=== PATIENT | male | born 1980 | race Caucasian/White ===

== ENCOUNTER 2017-11-02 15:48 | Emergency (ER) | payer BC ==
[2017-11-02] MEDS ORDERED: Metoclopramide HCl 10 MG TAB ONE (17:04)
[2017-11-02] MEDS ORDERED: diphenhydrAMINE 25 MG CAP ONE (17:04)
== END 2017-11-02 18:16 | disposition home or self-care (01) ==
LOC: ERS 15:48
DX: R51 Headache (principal)
CPT/HCPCS: 99283

== ENCOUNTER 2018-03-20 18:39 | Emergency (ER) | payer BC ==
[2018-03-20 19:09] LABS: #Basophils 0.1 thou/uL (0.0-0.2); #Eosinphils 0.1 thou/uL (0.0-0.7); #Lymphocytes 2.2 thou/uL (1.20-3.40); #Monocytes 0.5 thou/uL (0.11-0.59); #Neutrophils 3.3 thou/uL (1.40-6.50); %Basophils 1.1 % (0.0-1.0); %Eosinophils 1.1 % (0.0-10.0); %Lymphocytes 35.4 % (21.0-51.0); %Monocytes 8.2 % (0.0-10.0); %Neutrophils 54.2 % (42.0-75.0); Hemoglobin 15.5 g/dL (14.0-18.0); Mean Corpuscular HGB CONC 34.8 g/dL (32.0-36.0); Mean Corpuscular Volume 88.9 fL (78.0-98.0); Mean Platelet Volume 7.1 fL (7.4-10.4); Platelet Count 318 thou/uL (130-400); RBC Distribution Width 11.1 % (11.5-14.5); Red Blood Cell (RBC) Count 5.02 mill/uL (4.70-6.10); White Blood Cell (WBC) Count 6.2 thou/uL (4.8-10.8)
--- NOTE | 2018-03-20 19:22 | RAD ---
CHEST TWO VIEWS: 03/20/18 HISTORY: Chest pain, mid sternal region with deep breaths. FINDINGS/IMPRESSION: Heart size is normal. The lungs are clear. No pneumonia, edema, pleural effusion or other acute proce ss. POS: [facility]
[2018-03-20 19:30] LABS: ALT (SGPT) 39 U/L (8-55); AST (SGOT) 22 U/L (5-34); Albumin 4.5 g/dL (3.5-5.0); Alkaline Phosphatase 61 U/L (40-150); Anion Gap 14 mmol/L (10-20); BUN (Urea Nitrogen) 13 mg/dL (8.9-20.6); Bilirubin, Total 0.4 mg/dL (0.2-1.2); CK (CPK) 85 U/L (30-200); Calc. Creatinine Clearance 0 mL/min (70-130); Calcium 9.7 mg/dL (7.8-10.44); Carbon Dioxide 26 mmol/L (22-29); Chloride 104 mmol/L (98-107); Estimated GFR-MDRD 82; Globulin 3.7 g/dL (2.4-3.5); Glucose 119 mg/dL (70-105); Potassium 4.1 mmol/L (3.5-5.1); Protein, Total 8.2 g/dL (6.0-8.3); Sodium 140 mmol/L (136-145)
[2018-03-20 21:46] LABS: Troponin I Less than 0.010 ng/mL (< 0.028)
== END 2018-03-20 22:08 | disposition home or self-care (01) ==
LOC: ERS 18:39
DX: R07.89 Other chest pain (principal)
CPT/HCPCS: 36415; 71046; 80053; 82550; 83690; 84484; 85025; 93005

== ENCOUNTER 2018-08-24 15:28 | Outpatient (CLI) | payer BC ==
--- NOTE | 2018-08-24 16:13 | CT ---
CT cervical spine noncontrast HISTORY: Neck pain. M54.2. FINDINGS: Vertebral body heights are maintained. Physiologic subluxation at the C2-3 and C3-4 levels. No acute fracture or dislocation. No traumatic disc herniation is apparent. Minimal osteophytosis. Cervicothoracic junction is intact. No fluid collections or other abnormalities about the atlantoodon toid area. IMPRESSION: No acute osseous abnormalities are demonstrated.
== END 2018-08-24 15:29 | disposition home or self-care (01) ==
LOC: BICCT 15:28
PROVIDERS: ATTEND Physician Assistant
DX: M54.2 Cervicalgia (principal)
CPT/HCPCS: 72125

== ENCOUNTER 2022-04-24 09:57 | Emergency (ER) | payer BC ==
[2022-04-24 10:25] LABS: Bilirubin Negative (Negative); Blood, Urine Negative (Negative); Clarity Clear (Clear); Glucose, Urine (Dipstick) Normal (Negative); Ketone, Urine Negative (Negative); Leukocyte Negative Leu/uL (Negative); Nitrite Negative (Negative); Protein, Urine (Dipstick) Negative (Neg-Trace); Specific Gravity, Urine 1.002 (1.002-1.036); Urobilinogen Normal mg/dL (Less than 2); pH, Urine 6.5 (5.0-9.0)
[2022-04-24 10:41] LABS: #Lymphocytes 2.3 thou/uL (1.20-3.40); #Monocytes 0.5 thou/uL (0.11-0.59); %Basophils 0.6 % (0.0-1.0); %Eosinophils 0.8 % (0.0-10.0); %Lymphocytes 39.1 % (21.0-51.0); %Monocytes 7.9 % (0.0-10.0); %Neutrophils 51.6 % (42.0-75.0); Hemoglobin 16.1 g/dL (14.0-18.0); Mean Corpuscular HGB CONC 35.6 g/dL (32.0-36.0); Mean Corpuscular Volume 90.1 fl (78.0-98.0); Mean Platelet Volume 7.1 fL (7.4-10.4); Platelet Count 298 10x3/uL (130-400); RBC Distribution Width 11.2 % (11.5-14.5); Red Blood Cell (RBC) Count 5.04 mill/uL (4.70-6.10); White Blood Cell (WBC) Count 5.8 10x3/uL (4.8-10.8)
[2022-04-24 10:49] LABS: ALT (SGPT) 46 U/L (8-55); AST (SGOT) 28 U/L (5-34); Albumin 4.6 g/dL (3.5-5.0); Alkaline Phosphatase 52 U/L (40-110); Anion Gap 13 mmol/L (10-20); BUN (Urea Nitrogen) 16 mg/dL (8.9-20.6); Bilirubin, Total 0.7 mg/dL (0.2-1.2); Calc. Creatinine Clearance 0 mL/min (70-130); Calcium 9.9 mg/dL (7.8-10.44); Carbon Dioxide 27 mmol/L (22-29); Chloride 102 mmol/L (98-107); Estimated GFR 85; Globulin 3.4 g/dL (2.4-3.5); Glucose 111 mg/dL (70-105); Lipase 17 U/L (8-78); Sodium 138 mmol/L (136-145)
[2022-04-24] MEDS ORDERED: Ketorolac Tromethamine 30 MG/ML VIAL ONE (11:20)
[2022-04-24] MEDS ORDERED: Ondansetron PF 4 MG/2 ML Vial ONE (11:20)
== END 2022-04-24 12:31 | disposition home or self-care (01) ==
LOC: ERS 09:57
DX: R10.9 Unspecified abdominal pain (principal); K21.9 Gastro-esophageal reflux disease without esophagitis
CPT/HCPCS: 36415; 76705; 80053; 81003; 83690; 85025; 96374; J1885; J2405